=== PATIENT | female | born 1965 | race Hispanic/Latino ===

== ENCOUNTER → 2019-11-08 | Day surgery (SDC) | payer OTHER ==
[~2019-11-08] MED LIST: CALCIUM500 MG PO; FENTANYL CITRATE/PF 100MCG/2 ML INJ ONE; FERROUS SULFAT324 MG PO; HYOSCYAMINE 0.125 MG TAB ONE; LIDOCAINE HCL 2% LOCAL INJ 5 ML SDV VIAL INJ ONE; MIDAZOLAM HCL 2 MG/2 ML VIAL ONE; OMEGA 3 1,0001 EACH PO; POTASSIUM99 M1 PO; PROPOFOL IV EMULSION 10 MG/ML 50 ML VIAL ONE; VITAMIN B-121000 MCG PO
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
--- OUTSIDE RECORDS SUMMARY | 2019-11-08 09:46 | XMS REPORT ---
Author Author [facility] Address Unknown Phone Unavailable Care Team Providers Care [place] [employer] Name Role Phone Unavailable Unavailable Problems This patient has no known problems. Allergies, Adverse Reactions, Alerts This patient has no known allergies or adverse reactions. Medications This patient has no known medications. Encounters Start Date/Time End Date/Time Encounter Type Admission Type Attending [facility] Care Department Encounter ID 2019-02-09 00:00:00 2019-02-09 00:00:00 Outpatient [facility] [id number] 2018-12-29 00:00:00 2018-12-29 00:00:00 Outpatient [facility] [id number] 2018-12-18 00:00:00 2018-12-18 00:00:00 Outpatient [facility] [id number] 2018-12-12 00:00:00 2018-12-12 00:00:00 Outpatient [facility] [id number] 2018-12-08 16:34:34 2018-12-08 16:34:34 Outpatient [facility] [id number] 2018-11-20 00:00:00 2018-11-20 00:00:00 Outpatient [facility] [id number] 2018-11-06 10:17:38 2018-11-06 10:17:38 Outpatient [facility] [id number] 2018-11-06 09:03:20 2018-11-06 09:03:20 Outpatient [facility] [id number] 2018-10-31 00:00:00 2018-10-31 00:00:00 Outpatient [facility] [id number] 2018-10-13 07:02:32 2018-10-13 07:02:32 Outpatient [facility] [id number] 2018-10-12 09:12:02 2018-10-12 09:12:02 Outpatient [facility] [id number] 2018-10-09 10:23:08 2018-10-09 10:23:08 Outpatient [facility] [id number] 2018-10-09 09:12:55 2018-10-09 09:12:55 Outpatient [facility] [id number] 2018-10-09 08:02:18 2018-10-09 08:02:18 Outpatient [facility] [id number] 2018-10-06 00:00:00 2018-10-06 00:00:00 Outpatient [facility] [id number] 2018-09-27 00:00:00 2018-09-27 00:00:00 Outpatient [facility] [id number] 2018-09-26 15:26:16 2018-09-26 15:26:16 Outpatient [facility] [id number] 2018-09-26 13:49:34 2018-09-26 13:49:34 Outpatient [facility] [id number] 2018-09-18 12:19:31 2018-09-18 12:19:31 Outpatient [facility] [id number] 2018-09-18 10:22:13 2018-09-18 10:22:13 Outpatient [facility] [id number]
[2019-11-08 14:45] VITALS: BP 123/88
--- NOTE | 2019-11-08 21:26 | Operative Report ---
DATE OF PROCEDURE: 11/08/2019 SURGEON: Ferdinand Juarez MD PROCEDURE: Colonoscopy with polypectomy. INDICATIONS FOR COLONOSCOPY: Colorectal cancer screening. MEDICATIONS: The patient was done under MAC, please see anesthesiologist's note. PROCEDURE IN DETAIL: With the patient in left lateral decubitus position, a flexible fiberoptic Olympus colonoscope was inserted into the rectum with ease and advanced all the way to the cecum. The scope was then withdrawn slowly. Mucosa overlying the cecum, ascending colon, transverse colon, descending colon appeared to be within normal limits. There was some scattered diverticular disease noted in the distal descending and the sigmoid colon. One polyp was cold biopsied. One polyp was hot biopsied from the sigmoid colon. Six polyps were hot biopsied from the rectum. The scope was then retroflexed into the distal rectum. Small internal hemorrhoids were noted, none of which was actively bleeding. The scope was then straightened out, it was subsequently withdrawn. The patient tolerated the procedure well. IMPRESSION: 1. Diverticulosis. 2. Sigmoid colon polyps x2, one hot biopsied and one cold biopsied. 3. Rectal polyps x6, hot biopsied. 4. Internal hemorrhoids, none actively bleeding. A total of 8 polyps were removed. PLAN: Follow up histology. Initiate high-fiber, low-fat diet. Initiate high-fiber supplement. The patient might benefit from a followup colonoscopy in 3 years. Ferdinand Juarez MD [facility] [place]ANET /[id number] cc: Nisha Fontaine MD
== END | disposition home or self-care (01) ==
LOC: OR 09:38
PROVIDERS: ATTEND Internal Medicine Gastroenterology
DX: Z12.11 Encounter for screening for malignant neoplasm of colon (principal); D12.8 Benign neoplasm of rectum; K57.30 Diverticulosis of large intestine without perforation or abscess without bleeding; K59.09 Other constipation; K64.8 Other hemorrhoids; R03.0 Elevated blood-pressure reading, without diagnosis of hypertension; Z68.30 Body mass index [BMI] 30.0-30.9, adult; Z87.891 Personal history of nicotine dependence
CPT/HCPCS: 45378; 45384; 93005; J2001; J2250; J3010

== ENCOUNTER → 2020-02-14 | Outpatient (CLI) | payer OTHER ==
[~2020-02-14] MED LIST changes: -FENTANYL CITRATE/PF 100MCG/2 ML INJ ONE; -HYOSCYAMINE 0.125 MG TAB ONE; -LIDOCAINE HCL 2% LOCAL INJ 5 ML SDV VIAL INJ ONE; -MIDAZOLAM HCL 2 MG/2 ML VIAL ONE; -PROPOFOL IV EMULSION 10 MG/ML 50 ML VIAL ONE
--- NOTE | 2020-02-14 09:34 | Diagnostic Imaging Report ---
EXAM: Renal Ultrasound INDICATION: ^CYST OF KIDNEY COMPARISON: None TECHNIQUE: Transverse and longitudinal images of the kidneys and bladder were obtained. FINDINGS: Right Kidney: Size: 10.9 cm Echogenicity: Normal Parenchymal thickness: Normal Collecting system: No hydronephrosis Stones: None Cyst/Mass: Anechoic, simple cyst in the interpolar region measures 1.9 x 1.6 x 1.9 cm. Left Kidney: Size: 9.7 cm Echogenicity: Normal Parenchymal thickness: Normal Collecting system: No hydronephrosis Stones: None Cyst/Mass: Exophytic cyst projects from the lateral aspect of the left kidney measuring 0.9 x 0.8 x 0.9 cm. Additional simple cyst within the left kidney measures 0.9 x 0.7 x 1.0 cm. Bladder: Unremarkable. Right and left ureteral jets are identified. IMPRESSION: Small bilateral renal cysts as above, without suspicious sonographic features. Signed by: Dr. Jadon Leiva M.D. on 02/14/2020 9:31 AM
== END ==
LOC: US 08:48
PROVIDERS: ATTEND Urology
DX: N28.1 Cyst of kidney, acquired (principal)
CPT/HCPCS: 76770

== ENCOUNTER 2020-04-08 14:05 | Emergency (ER) | payer OTHER ==
[~2020-04-08] VITALS: Ht 147.3 cm; Wt 64.4 kg
--- NOTE | 2020-04-08 14:35 | Emergency Department Note ---
History of Present Illnes History of Present Illness Chief Complaint: General Medicine Complaints History of Present Illness This is a 54 year old female presents to the ED s/p fall onto left hand. TTP to L wrist. 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 Any updates have been documented here. Review of Systems Review of Systems Constitutional: Reports no symptoms EENTM: Reports no symptoms Cardiovascular: Reports no symptoms Respiratory: Reports no symptoms Gastrointestinal: Reports no symptoms Genitourinary: Reports no symptoms Musculoskeletal: Reports joint pain, Reports joint swelling, Reports muscle pain Integumentary: Reports no symptoms Neurological: Reports no symptoms Psychological: Reports no symptoms Endocrine: Reports no symptoms Hematological/Lymphatic: Reports no symptoms Physical Exam Related Data Allergies: Coded Allergies: No Known Allergies (Unverified , 11/06/19) Triage Vital Signs Vital Signs Date Time Temp Pulse Resp B/P (MAP) Pulse Ox O2 Delivery O2 Flow Rate FiO2 04/08/20 14:55 98.2 90 18 168/108 98 Vital signs reviewed: Yes Physical Exam CONSTITUTIONAL Constitutional: Present well-developed, Present well-nourished HENT HENT: Present normocephalic, Present atraumatic, Present oropharynx clear/moist, Present nose normal HENT L/R: Present left ext ear normal, Present right ext ear normal EYES Eyes: Reports PERRL, Reports conjunctivae normal NECK Neck: Present ROM normal PULMONARY Pulmonary: Present effort normal, Present breath sounds normal CARDIOVASCULAR Cardiovascular: Present regular rhythm, Present heart sounds normal, Present capillary refill normal, Present normal rate GASTROINTESTINAL Abdominal: Present soft, Present nontender, Present bowel sounds normal GENITOURINARY Genitourinary: Present exam deferred SKIN Skin: Present warm, Present dry MUSCULOSKELETAL Musculoskeletal: Present edema (Left wrist), Present deformity NEUROLOGICAL Neurological: Present alert, Present oriented x 3, Present no gross motor or sensory deficits PSYCHOLOGICAL Psychological: Present mood/affect normal, Present judgement normal Results Imaging Imaging results reviewed: Yes Impressions [place] [address] Patient Name: AIRAM BLACKMAN MR #: [id number] : 1965 Age/Sex: 54/F Req #: [id number] Adm Physician: Ordered by: ANGEL LEBLANC DO Report #: [id number] Location: ER Room/Bed: Procedure: [id number] DX/WRIST COMPLETE LEFT Exam Date: Exam Time: REPORT STATUS: Signed EXAM: WRIST COMPLETE LEFT, HAND 3+ VIEWS LEFT DATE: 04/08/2020 2:53 PM INDICATION: Fall COMPARISON: None FINDINGS: AP, lateral, oblique views are obtained of the left hand and wrist. There is no evidence for acute fracture or dislocation. Bony mineralization is within normal limits. No focal lytic or blastic abnormality is identified. The scapholunate interval is within normal limits. The surrounding soft tissues are unremarkable without evidence for radiopaque foreign body. IMPRESSION: No acute radiographic abnormality identified within the left hand or wrist. Signed by: Dr. Neel Milligan MD on 04/08/2020 3:27 PM Dictated By: NEEL MILLIGAN MD 152 Transcribed By: CATHRYN on 04/08/20 1527 COPY TO: ANGEL LEBLANC DO~ Assessment & Plan Medical Decision Making MDM 54 yof presents to the ED for left wrist pain s/p fall. Diff Dx : Fracture, sprain, strain, dislocation. Assessment & Plan Final Impression: (1) Sprain of wrist, left Home Meds Reported Medications [place]-3 Fatty Acids/Fish Oil (OMEGA 3 1,000 MG SOFTGEL) 1 Each Capsule, PO DAILY 11/06/19 Potassium Gluconate (POTASSIUM) 99 Mg Tablet, PO DAILY 11/06/19 Calcium Carbonate (CALCIUM) 500 Mg Tablet, PO DAILY 11/06/19 Ferrous Sulfate (FERROUS SULFATE) 324 Mg Tablet., PO DAILY 11/06/19 Cyanocobalamin (VITAMIN B-12) 1,000 Mcg Tab, PO DAILY, #30 TAB 11/06/19 ANGEL LEBLANC DO Apr 08, 2020 14:35
--- NOTE | 2020-04-08 15:31 | Diagnostic Imaging Report ---
EXAM: WRIST COMPLETE LEFT, HAND 3+ VIEWS LEFT DATE: 04/08/2020 2:53 PM INDICATION: Fall COMPARISON: None FINDINGS: AP, lateral, oblique views are obtained of the left hand and wrist. There is no evidence for acute fracture or dislocation. Bony mineralization is within normal limits. No focal lytic or blastic abnormality is identified. The scapholunate interval is within normal limits. The surrounding soft tissues are unremarkable without evidence for radiopaque foreign body. IMPRESSION: No acute radiographic abnormality identified within the left hand or wrist. Signed by: Dr. Neel Osborne MD on 04/08/2020 3:27 PM
== END 2020-04-08 17:08 | disposition home or self-care (01) ==
LOC: ER 15:23
DX: S63.502A Unspecified sprain of left wrist, initial encounter (principal); W19.XXXA Unspecified fall, initial encounter
CPT/HCPCS: 99283

== ENCOUNTER → 2021-11-17 | Day surgery (SDC) | payer OTHER ==
[~2021-11-17] MED LIST changes: +FENTANYL CITRATE/PF 100MCG/2 ML INJ ONE; +LIDOCAINE HCL 2% LOCAL INJ 5 ML SDV VIAL INJ ONE; +MIDAZOLAM HCL 5 MG/ML VIAL ONE; +PROPOFOL IV EMULSION 10 MG/ML 20 ML VIAL ONE; +SIMVASTATIN20 MG PO
[2021-11-17 10:50] VITALS: BP 111/89
== END | disposition home or self-care (01) ==
LOC: OR 07:32
PROVIDERS: ATTEND Internal Medicine Gastroenterology
DX: Z12.11 Encounter for screening for malignant neoplasm of colon (principal); D12.2 Benign neoplasm of ascending colon; D12.4 Benign neoplasm of descending colon; K57.30 Diverticulosis of large intestine without perforation or abscess without bleeding; K64.8 Other hemorrhoids; U07.1 COVID-19; G47.33 Obstructive sleep apnea (adult) (pediatric); E78.5 Hyperlipidemia, unspecified; Z01.810 Encounter for preprocedural cardiovascular examination; Z79.899 Other long term (current) drug therapy; Z87.891 Personal history of nicotine dependence
CPT/HCPCS: 45384; 93005; J2001; J2250; J2704; J3010; U0002